=== PATIENT | female | born 1975 | race Caucasian/White ===

== ENCOUNTER 2023-05-24 18:10 | Emergency (ER) | payer OTHER, SELFPAY ==
[2023-05-24 18:32] VITALS: BP 146/84; PULSE 93; RESP 18; TEMP 36.8; O2SAT 98; BMI 39.0
[2023-05-24 20:52] VITALS: BP 141/98; PULSE 90; RESP 20; O2SAT 98
--- NOTE | 2023-05-24 21:28 | ED_ITS ---
HPI - General Adult General Chief complaint: Extremity Injury, Lower Stated complaint: Lower Pain Time Seen by Provider: 05/24/23 19:57 Source: patient Mode of arrival: Wheelchair Limitations: no limitations History of Present Illness HPI narrative: This 48-year-old female presents for evaluation of left buttock and left hip pain that radiates into her left anterior thigh. The patient states that at times her pelvis Gets out of alignment. She states this has been ongoing for a long time. Today she states that she sneezed and did not brace herself and felt sudden pain in her left buttock area with muscle spasms in the left low back that radiate into her left thigh. There is been no loss of bowel or bladder control. She denies any chest pain or shortness of breath. She has had back surgery in the past. This was many years ago and she has not had any back problems since that time. She states that when she has the symptoms she typically goes to a physical therapist. Today after sneezing and having pain she did her physical therapy exercises and feels that the muscles are spasming and her hip is trying to realign itself but has not been able to do so thus far. She has no weakness numbness or tingling. She has no calf pain or swelling. Related Data Home Medications Medication Instructions Recorded Confirmed cholecalciferol (vit D3) 137.5 mcg 1 tab PO DAILY 05/24/23 05/24/23 (5,500 unit)-vit K2 200 mcg tablet (DosoKap) diltiazem HCl 180 mg 180 mg PO DAILY 05/24/23 05/24/23 capsule,extended release 24 hr hydroxyzine HCl 25 mg tablet 25 mg PO DAILY 05/24/23 05/24/23 lamotrigine 200 mg tablet 200 mg PO DAILY 05/24/23 05/24/23 losartan 25 mg tablet 25 mg PO DAILY 05/24/23 05/24/23 Allergies Allergy/AdvReac Type Severity Reaction Status Date / Time acetaminophen [From Percocet] Allergy Intermediate Verified 05/24/23 18:32 oxycodone [From Percocet] Allergy Intermediate Verified 05/24/23 18:32 Review of Systems ROS Status of ROS 10 or more systems reviewed and unremark able except as noted in history and below Exam Narrative Exam Narrative: Nurses note and vital signs reviewed and patient is not hypoxic. General: Alert, nontoxic, moderately uncomfortable appearing female, she is standing at the sink bent over the sink due to pain in her left low back and buttock area, no respiratory distress Skin: Warm, dry, no pallor noted. There is no rash noted. Head: Normocephalic, atraumatic Eye: Normal conjunctiva, no drainage, EOMI. PERRL Ears, Nose, Mouth, and Throat: oral mucosa is moist. Cardiovascular: Regular Rate and RhythmS1 and S2, no murmurs rubs or gallops appreciated Respiratory: Patient is in no distress, no accessory muscle use, lungs are clear to auscultation, no wheezing, rales or rhonchi Back:Midline bony vertebral tenderness or step-off. There is tenderness in the left buttock and left lateral hip area. Patient is ambulatory. She resists range of motion due to muscle spasms. There is mild tenderness in the anterior thigh. There is no calf swelling or tenderness. Sizes were compared [id number] and are equal. There is no muscle wasting or atrophy noted. GI: Normal bowel sounds, no tenderness to palpation, no masses appreciated. No rebound, guarding, or rigidity noted. Musculoskeletal: The patient has no evidence of calf tenderness, tenderness to palpation in the left buttock area, left lateral hip and greater trochanteric area and on the anterior aspect of the left quadricep muscle Neurological: A&O x4, normal speech, No saddle anesthesia. Lower extremity strength and sensation is intact, patient is ambulatory with a steady gait Psychiatric: Cooperative Constitutional Vital Signs, click to edit/add: Last Vital Signs Temp 98.2 F 05/24/23 18:32 Pulse 90 05/24/23 20:52 Resp 20 05/24/23 20:52 BP 141/98 H 05/24/23 20:52 Pulse Ox 98 05/24/23 20:52 O2 Del Method Room Air 05/24/23 18:32 Course Vital Signs Vital signs: Vital Signs Temperature 98.2 F 05/24/23 18:32 Pulse Rate 93 H 05/24/23 18:32 Respiratory Rate 18 05/24/23 18:32 Blood Pressure 146/84 H 05/24/23 18:32 Pulse Oximetry 98 05/24/23 18:32 Oxygen Delivery Method Room Air 05/24/23 18:32 Temperature 98.2 F 05/24/23 18:32 Pulse Rate 90 05/24/23 20:52 Respiratory Rate 20 05/24/23 20:52 Blood Pressure 141/98 H 05/24/23 20:52 Pulse Oximetry 98 05/24/23 20:52 Oxygen Delivery Method Room Air 05/24/23 18:32 Medical Decision Making MDM Narrative Medical decision making narrative: This 40-year-old female with a history of chronic low back pain who has had back surgery in the past presents for evaluation of pain in her left hip area that goes down into her left quadriceps muscle with muscle spasms. She denies any injury. She has no neurologic deficits. The symptoms started earlier today after she had sneezed. He is ambulatory. She has no bowel or bladder dysfunction. Her neuro exam is normal she is ambulatory in the room. She was medicated with Toradol and Norflex and on reevaluation she states she is feeling better. She is able to lift her left leg up and down. She states she has a virtual appointment with her family physician tomorrow. She will be discharged home with a prescription for Flexeril and ibuprofen. She is encouraged to drink plenty off fluids and return to emergency department for any worsening symptoms, lack of bowel or bladder control or any weakness numbness or other neurologic symptoms. Discharge Plan Discharge Chief Complaint: Extremity Injury, Lower Clinical Impression: Strain of muscle of pelvis, Muscle spasm Patient Disposition: Home, Self-Care Time of Disposition Decision: 22:26 Condition: Good Prescriptions / Home Meds: No Action DosoKap 137.5-200 mcg tablet 1 tab PO DAILY diltiazem HCl 180 mg capsule,extended release 24hr 180 mg PO DAILY hydroxyzine HCl 25 mg tablet 25 mg PO DAILY lamotrigine 200 mg tablet 200 mg PO DAILY losartan 25 mg tablet 25 mg PO DAILY Instructions: Muscle Spasm (ED), Back Pain (ED) Stand Alone Forms: Portal Instructions Referrals: ALEK CHAUHAN [Primary Care Provider] - 1 week
[2023-05-24] MEDS: ONDANSETRON 4 MG RAPDIS TABLET SL (21:39)
[2023-05-24] MEDS: ORPHENADRINE 60 MG/ 2 ML VIAL IM (21:39)
[2023-05-24] MEDS: KETOROLAC TROMETHAMINE 60 MG/2 ML VIAL IM (21:39)
[2023-05-24 22:47] VITALS: BP 155/93; PULSE 75; O2SAT 96
== END 2023-05-24 22:48 | disposition home or self-care (01) ==
PROVIDERS: Emergency Provider Emergency Medicine; PCP Family Medicine
DX: S39.013A Strain of muscle, fascia and tendon of pelvis, initial encounter (principal); M62.838 Other muscle spasm; X58.XXXA Exposure to other specified factors, initial encounter
CPT/HCPCS: 96372; 99284; J1885; J2360; Q0162